=== PATIENT | female | born 1950 | race Caucasian/White ===

== ENCOUNTER 2016-09-05 20:32 | Emergency (ER) | payer MEDICARE, OTHER ==
[2016-09-05] MEDS ORDERED: METHYLPRED SOD SUCC 125 MG/2 ML VIAL ONE (21:41)
== END 2016-09-05 22:25 | disposition home or self-care (01) ==
LOC: ER 20:32
DX: M10.9 Gout, unspecified (principal)
CPT/HCPCS: 96372; 99283; J2930